=== PATIENT | female | born 1965 | race Caucasian/White ===

== ENCOUNTER 2024-09-05 15:30 | Outpatient (OUT) | payer BC, SELFPAY ==
--- NOTE | 2024-09-05 15:36 | MM_ITS ---
Patient Name: VANESA HERRING MR#: [id number] : 1965 Exam Date: 09/05/2024 Ordering Doctor: DR CHERYLE [facility] RADIOLOGY REPORT PROCEDURE: MM TOMOSYNTHESIS SCREENING BI COMPARISON: MG MAMM SCREEN LEI W CAD, 03/09/2018. MG MAMM DIAGNOSTIC 3D LEI CAD, 02/01/2022. INDICATIONS: Screening Calculator Name NCI Breast Cancer Risk Assessment Tool 5 Year Breast Cancer Risk 1.70% Lifetime Breast Cancer Risk 8.50% Personal Breast Cancer No Personal Ovarian Cancer No Treatments None Family Cancers None LOCATION: [facility] BREAST COMPOSITION: There are scattered areas of fibroglandular density. FINDINGS: DIAGNOSTIC CATEGORY 1--NEGATIVE. NO CHANGE FROM COMPARISON ASSESSMENT. Scattered benign-appearing calcifications are present. RIGHT BREAST: No significant suspicious finding. Stable micro clip marker lower outer quadrant, anterior breast. LEFT BREAST: No significant suspicious finding. RECOMMENDATIONS: ROUTINE MAMMOGRAM AND CLINICAL EVALUATION IN 12 MONTHS. PLEASE NOTE: A NORMAL MAMMOGRAM DOES NOT EXCLUDE THE POSSIBILITY OF BREAST CANCER. A CLINICALLY SUSPICIOUS PALPABLE LUMP SHOULD BE BIOPSIED. Dictated by: Rasheed Ramirez MD on 09/06/2024 at 09:36 Approved by: Rasheed Ramirez MD on 09/06/2024 at 09:37
== END 2024-09-05 15:31 | disposition home or self-care (01) ==
LOC: MAMMO 15:30
PROVIDERS: PCP Family Medicine; Visit Provider Family Medicine
DX: Z12.31 Encounter for screening mammogram for malignant neoplasm of breast (principal)
CPT/HCPCS: 77063; 77067